=== PATIENT | female | born 1930 | race Caucasian/White ===

== ENCOUNTER 2016-05-04 08:02 | Outpatient (CLI) | payer OTHER ==
[2015-06-02 22:55] VITALS: BP 130/68
[2016-05-04 08:30] LABS: BASOPHILS % 0.5 (0.0-1.5); EOSINOPHILS % 2.6 % (0.0-6.8); LYMPHOCYTES # 1.4 # k/uL (0.6-4.0); MEAN CORPUSCULAR HEMOGLOBIN 31.2 pg (28.0-34.0); MONOCYTES # 0.7 # k/uL (0.0-0.9); MONOCYTES % 7.2 % (0.0-11.0); NEUTROPHILS # 7.4 # k/uL (1.4-7.7)
[2016-05-04 08:54] LABS: eGFR (African) > 60; eGFR (Non-African) > 60
== END 2016-05-04 08:03 ==
LOC: LAB 08:02
PROVIDERS: ATTEND Family Medicine
DX: E78.1 Pure hyperglyceridemia (principal); I10 Essential (primary) hypertension
CPT/HCPCS: 36415; 80053; 80061; 85025

== ENCOUNTER 2016-05-10 08:14 | Outpatient (CLI) | payer OTHER ==
[2015-06-02 22:55] VITALS: BP 130/68
[2016-05-10 09:22] LABS: APPEARANCE,URINE Slightly Cloudy (CLEAR); COLOR,URINE Yellow (YELLOW); OCCULT BLOOD,URINE Negative (NEGATIVE); UROBILINOGEN URINE 0.2 Eu (0.2-1.0)
[2016-05-10 10:16] LABS: AMORPHOUS SEDIMENT,UR FEW (NEGATIVE)
--- NOTE | 2016-05-10 14:09 | Diagnostic Imaging Report ---
[facility] [address] [facility] [address] [address] Report Submission Date: May 10, 2016 9:01:54 AM STRAWHAT SIZER Patient Study Name: VIKAS JAIN Date: May 10, 2016 8:32:59 AM STRAWHAT SIZER Modality Type: CT\SR Gender: F Description: CT BRAIN W/O CONTRAST : 32 Institution: [facility] Physician: ANGIE AGUILERA Head CT without contrast Clinical history: Multiple falls in the last few months. Severe headaches. Technique: CT examination of the brain is performed in contiguous axial slices without the use of contrast. Sagittal and coronal reconstructions are performed by the technologist. Findings: The fourth ventricle lies in a normal midline position. The ventricles and sulci are prominent secondary to atrophy. There is no hypodense or hyperdense mass or intracranial hemorrhage. Visualized paranasal sinuses and the mastoid air cells are clear. Impression: 1. Atrophy. 2. No acute intracranial changes. Electronically signed on May 10, 2016 9:01:54 AM STRAWHAT SIZER by: Jaguar HINTON
--- NOTE | 2016-05-10 14:10 | Diagnostic Imaging Report ---
[facility] [address] [facility] [address] Report Submission Date: May 10, 2016 12:12:51 PM FINANCIAL SALES ADVISOR Patient Study Name: VIKAS JAIN Date: May 10, 2016 8:43:12 AM FINANCIAL SALES ADVISOR Modality Type: US Gender: F Description: DPLX SCN XTRCRAN ART CMP MARIELY : 32 Institution: [facility] Physician: ANGIE AGUILERA Duplex imaging of the carotids Clinical history: Left carotid bruit. Technique: Real time sonography of the carotid and vertebral arteries is performed in transverse and longitudinal views. Doppler interrogation and color flow imaging are additionally used. Findings: Intimal thickening is evident in the common carotid and proximal internal carotid arteries bilaterally. There are scattered areas of plaque formation. No significant stenosis is evident on the ryan scale images. Doppler waveforms are within normal limits without significant spectral broadening. The internal carotid peak velocities measure 63 cm/sec on the right 76 cm/sec on the left with an internal carotid to common carotid artery ratio 0.7 on the right 0.5 on the left. Vertebral arteries demonstrate normal cephalad flow. Impression: 1. Bilateral plaque formation and intimal thickening. 2. Bilateral less than 50% internal carotid stenosis. The degree of carotid stenosis is estimated using the Society of Radiologists in Ultrasound consensus conference of 2003 criteria. Electronically signed on May 10, 2016 12:12:51 PM FINANCIAL SALES ADVISOR by: Jaguar HINTON
== END 2016-05-10 08:15 ==
LOC: RAD 08:14
PROVIDERS: ATTEND Family Medicine
DX: R35.0 Frequency of micturition (principal); G45.9 Transient cerebral ischemic attack, unspecified; R09.89 Other specified symptoms and signs involving the circulatory and respiratory systems; N39.0 Urinary tract infection, site not specified
CPT/HCPCS: 70450; 81002; 87088; 93880

== ENCOUNTER 2016-06-12 19:20 | Emergency (ER) | payer OTHER ==
--- NOTE | 2016-06-12 19:31 | ED Physician Documentation ---
General Adult - HISTORIAN Historian: patient, paramedics - [facility] Stated Complaint: fall Chief Complaint: General Adult Onset: minutes Timing: still present Severity: moderate Further Comments: yes (Pt is an 85 yo female who fell at home and sustained multiple skin tears to her R arm and L knee and a small facial laceration, which occurred due to her eyeglasses. Pt denies significant injury to her head , except where the eyeglasses struck. She has no neck pain. Pt has osteoarthritis and has fallen several times upon getting up from her chair, when her knees give way. No lightheadedness, she says.) - ROS CONST: no problems EYES/ENT: none CVS/RESP: none GI/: none MS/SKIN/LYMPH: other (skin tears R arm, L knee, small facial lac) - PAST HX Past History: hypertension, other (Thyroid d/o) Allergies/Adverse Reactions: Allergies Allergy/AdvReac Type Severity Reaction Status Date / Time aspirin Allergy Severe bleeding Verified 06/02/15 21:11 ulcer adhesive Allergy Intermediate Rash Verified 06/02/15 21:11 Penicillins Allergy Intermediate Hives Verified 06/02/15 21:11 Sulfa (Sulfonamide Allergy Intermediate Rash Verified 06/02/15 21:11 Antibiotics) Home Medications: Ambulatory Orders Medication Instructions Recorded Allopurinol [Zyloprim] 300 mg PO D 04/19/13 Ca/D3/Mag Ox/Zinc/Trust Manager/Hugo/Bor 1 each PO D 04/19/13 [Calcium 600+D3 Plus Caplet] Cyanocobalamin [Vitamin B-12] 1,000 mcg IM DIRECTED 04/19/13 Levothyroxine Sodium 25 mcg PO D 04/19/13 Lisinopril/Hydrochlorothiazide 1 each PO D 04/19/13 [Lisinopril-Hctz 20-12.5 mg Tab] Lovastatin 40 mg PO HS 04/19/13 Multivitamin [Tab-A-Sonya] 1 each PO QD 04/19/13 Albuterol Sulfate [Proair Hfa] 2 inh IH QID #1 hfa.aer.ad 07/04/13 Benzonatate [Tessalon Perles] 200 mg PO TID #20 capsule 07/04/13 Cephalexin [Keflex] 500 mg PO QID #30 capsule 07/04/13 - SOCIAL HX Smoking History: non-smoker Alcohol Use: none Drug Use: none - FAMILY HX Family History: No - VITAL SIGNS Vital Signs: Vital Signs Temp Pulse Resp BP Pulse Ox 130/68 06/02/15 22:53 - REVIEWED ASSESSMENTS Nursing Assessment Reviewed: Yes Vitals Reviewed: Yes Progress - Progress Progress: superficial 2 cm laceration R cheek, cleansed with memo-clens and closed with steristrips and tissue adhesive. multiple skin tears closed with steri stips and dressing applied. Tetanus utd. General Adult Physical Exam - PHYSICAL EXAM GENERAL APPEARANCE: mild distress EENT: eye inspection normal, pharynx normal NECK: normal inspection, supple RESPIRATORY: no resp distress, chest non-tender CVS: reg rate & rhythm, heart sounds normal BACK: normal inspection SKIN: other (skin tear, L knee; skin tears R arm, elbow, forearm, hand; small superficial laceration R cheek; abrasion over bridge of nose.) EXTREMITIES: non-tender, normal range of motion NEURO: oriented X3, motor nml, sensation nml Discharge Clincal Impression: Multiple skin tears Fall Qualifiers: Encounter type: initial encounter Qualified Code(s): W19.XXXA - Unspecified fall, initial encounter Laceration of right cheek Qualifiers: Encounter type: initial encounter Qualified Code(s): S01.411A - Laceration without foreign body of right cheek and temporomandibular area, initial encounter Referrals: Bill Santana MD [Primary Care Provider] - Home Medications: Ambulatory Orders Allopurinol [Zyloprim] 300 mg PO D 04/19/13 Ca/D3/Mag Ox/Zinc/Trust Manager/Hugo/Bor [Calcium 600+D3 Plus Caplet] 1 each PO D Cyanocobalamin [Vitamin B-12] 1,000 mcg IM DIRECTED 04/19/13 Levothyroxine Sodium 25 mcg PO D 04/19/13 Lisinopril/Hydrochlorothiazide [Lisinopril-Hctz 20-12.5 mg Tab] 1 each PO D Lovastatin 40 mg PO HS 04/19/13 Multivitamin [Tab-A-Sonya] 1 each PO QD 04/19/13 Albuterol Sulfate [Proair Hfa] 2 inh IH QID #1 hfa.aer.ad 07/04/13 Benzonatate [Tessalon Perles] 200 mg PO TID #20 capsule 07/04/13 Cephalexin [Keflex] 500 mg PO QID #30 capsule 07/04/13 Condition: Good Disposition: 01 HOME, SELF-CARE Decision to Admit: NO Decision Time: 20:34
[2016-06-12 21:00] VITALS: BP 133/60
== END 2016-06-12 20:30 | disposition home or self-care (01) ==
LOC: ED 19:20
DX: S01.411A Laceration without foreign body of right cheek and temporomandibular area, initial encounter (principal); W19.XXXA Unspecified fall, initial encounter; Y93.9 Activity, unspecified; Y99.9 Unspecified external cause status
CPT/HCPCS: 99283; 99284

== ENCOUNTER 2017-01-11 07:12 | Outpatient (CLI) | payer OTHER ==
[2017-01-11 07:46] LABS: BASOPHILS % 0.5 (0.0-1.5); EOSINOPHILS % 1.7 % (0.0-6.8); MEAN CORPUSCULAR HEMOGLOBIN 31.5 pg (28.0-34.0); MONOCYTES % 5.6 % (0.0-11.0)
[2017-01-11 07:56] LABS: eGFR (African) > 60; eGFR (Non-African) > 60
[2017-01-11 10:39] LABS: PLT EST. EST. AGREES W/PLT CT
== END 2017-01-11 07:13 ==
LOC: LAB 07:12
PROVIDERS: ATTEND Family Medicine
DX: E78.00 Pure hypercholesterolemia, unspecified (principal); I10 Essential (primary) hypertension; E03.9 Hypothyroidism, unspecified
CPT/HCPCS: 36415; 80053; 80061; 84443; 85025

== ENCOUNTER 2017-02-23 18:49 | Emergency (ER) | payer OTHER ==
[2017-02-23] MEDS ORDERED: DIPH,PERTUSS(ACELL),TET VAC/PF 0.5 ML DISP.SYRIN IM ONE (19:59)
--- NOTE | 2017-02-23 21:04 | ED Physician Documentation ---
Fall - HISTORIAN Historian: patient, friend - HPI Stated Complaint: Fall with skin tear to left arm Chief Complaint: Fall Additional Information: fall w/multiple very superficial skin tears lt hand fore arm and elbow-denies other injuries. denies head neck or other injuries-'JUST TRIPPED' AMBULATES NOW W/O DIFFICULTY Onset: just prior to arrival Where: home Context: tripped r: mild, moderate Associated Symptoms:: no loss of consciousness Location of Pain/Injury: denies: head, neck, face, chest, upper back, mid back, lower back Injury to Right Extremity: none Injury to Left Extremity: other (as above) - ROS CONST: no problems. denies: recent illness, fever, weakness NEURO: denies: dizziness, anxiety, depression MS/SKIN/LYMPH: denies: neck pain, back pain, ankle swelling, leg swelling EYES/ENT: none CVS/RESP: none. denies: shortness of breath, palpitations - PAST HX Past History: other (HTN LO THRYOID GOUT THROMBOCYTOSIS) Immunizations: UTD (FIRST SAID LONG TIME THEN NURSING STAFF FOUND SHE HAD TET IMMUN APPROX 1 YR AGO) Allergies/Adverse Reactions: Allergies Allergy/AdvReac Type Severity Reaction Status Date / Time aspirin Allergy Severe bleeding Verified 02/23/17 19:12 ulcer adhesive Allergy Intermediate Rash Verified 02/23/17 19:12 Penicillins Allergy Intermediate Hives Verified 02/23/17 19:12 Sulfa (Sulfonamide Allergy Intermediate Rash Verified 02/23/17 19:12 Antibiotics) Home Medications: Ambulatory Orders Medication Instructions Recorded Allopurinol [Zyloprim] 300 mg PO D 04/19/13 Ca/D3/Mag Ox/Zinc/Hand Funnel Coater/Hugo/Bor 1 each PO D 04/19/13 [Calcium 600+D3 Plus Caplet] Cyanocobalamin [Vitamin B-12] 1,000 mcg IM DIRECTED 04/19/13 Lovastatin 40 mg PO HS 04/19/13 Multivitamin [Tab-A-Sonya] 1 each PO QD 04/19/13 Albuterol Sulfate [Proair Hfa] 2 inh IH QID #1 hfa.aer.ad 07/04/13 Hydroxyurea [Hydroxyurea] 500 mg PO DAILY 02/23/17 - SOCIAL HX Smoking History: non-smoker Alcohol Use: none Drug Use: none - FAMILY HX Family History: no significant history - VITAL SIGNS Vital Signs: Vital Signs Temp Pulse Resp BP Pulse Ox 97.9 F 76 16 126/65 95 02/23/17 19:00 02/23/17 19:00 02/23/17 19:00 02/23/17 19:00 02/23/17 19:00 - REVIEWED ASSESSMENTS Nursing Assessment Reviewed: Yes Vitals Reviewed: Yes Procedures Wound Location: upper extremity Wound's Depth, Shape: superficial, irregular, flap, other (THREE LARGE SKIN TEARS-VERY SUPERFICIAL ELBOPW=TISSUE GONE) Wound Repaired With: Dermabond (ATTEMPT APPROX AT VARIOUS PLACET TO PARTIALLY COVER WOUND AFTER COPIOUS IRRIGATION - SUSAN W/ TELFA DRESSING) Sterile Dressing Applied?: Yes ED Results Lab/Radiology - Orders Orders: ED Orders Category Date Time Status Skin Adhesive NOW Care 02/23/17 20:15 Ordered Diph,Pertuss(Acell),Tet Vac/Pf [Adacel] Med 02/23/17 19:59 Discontinued 0.5 ml IM .ONCE ONE Fall Physical Exam - Physical Exam General Appearance: mild distress Head: non-tender, no swelling, no obvious injury Neck: non-tender, painless ROM Eye: MASON ENT: nml external inspection Resp/CVS: chest non-tender, no ecchymosis, breath sounds nml, no resp. distress , heart sounds nml Abdomen: soft, non-tender, other (PELVIC STRETCH NEG) Neuro: oriented x3, CN's nml as tested, sensation nml, motor nml, mood/affect nml Skin: color nml, no rash. No: cyanosis, diaphoresis, pallor, ecchymosis Extremities: atraumatic (XC W/ CC) Joint: nml ROM - [place] Coma Score Speech: Oriented Motor: Obeys Commands Discharge Clincal Impression: FALL W/MULTI SKINTEARS LT UPPER EXT Referrals: Bill Santana MD [Primary Care Provider] - 2 Days Condition: Good Disposition: 01 HOME, SELF-CARE Decision to Admit: NO Decision Time: 21:12
[2017-02-23 21:53] VITALS: BP 114/44
== END 2017-02-23 21:20 | disposition home or self-care (01) ==
LOC: ED 18:49
DX: S41.112A Laceration without foreign body of left upper arm, initial encounter (principal); W19.XXXA Unspecified fall, initial encounter; Y93.9 Activity, unspecified; Y99.9 Unspecified external cause status
CPT/HCPCS: 12001; 99283; 99284

== ENCOUNTER 2017-07-17 10:06 | Outpatient (CLI) | payer OTHER ==
[2017-07-17 10:56] LABS: eGFR (African) > 60; eGFR (Non-African) > 60
== END 2017-07-17 10:07 ==
LOC: LAB 10:06
PROVIDERS: ATTEND Family Medicine
DX: E87.1 Hypo-osmolality and hyponatremia (principal); I10 Essential (primary) hypertension
CPT/HCPCS: 36415; 80048

== ENCOUNTER 2017-08-04 08:21 | Outpatient (CLI) | payer OTHER ==
[2017-08-04 09:17] LABS: eGFR (African) > 60; eGFR (Non-African) > 60
== END 2017-08-04 08:30 ==
LOC: LAB 08:21
PROVIDERS: ATTEND Family Medicine
DX: E03.9 Hypothyroidism, unspecified (principal); E87.1 Hypo-osmolality and hyponatremia; I10 Essential (primary) hypertension
CPT/HCPCS: 36415; 80048; 84443

== ENCOUNTER 2017-08-15 14:05 | Outpatient (CLI) | payer OTHER ==
[2017-08-15 15:39] LABS: eGFR (African) > 60; eGFR (Non-African) > 60
== END 2017-08-15 14:06 ==
LOC: NEPHRO 14:05
PROVIDERS: ATTEND Internal Medicine Nephrology
DX: E87.1 Hypo-osmolality and hyponatremia (principal); E87.6 Hypokalemia
CPT/HCPCS: 36415; 80053; G0463

== ENCOUNTER 2017-08-29 14:46 | Outpatient (CLI) | payer OTHER | END 2017-08-29 14:48 | LOC: NEPHRO 14:46 | PROVIDERS: ATTEND Internal Medicine Nephrology | DX: I10 Essential (primary) hypertension (principal) | CPT/HCPCS: G0463 ==

== ENCOUNTER 2017-12-14 10:40 | Outpatient (CLI) | payer OTHER ==
[2017-12-14 12:05] LABS: eGFR (African) > 60; eGFR (Non-African) > 60
== END 2017-12-14 10:42 ==
LOC: LAB 10:40
PROVIDERS: ATTEND Family Medicine
DX: I10 Essential (primary) hypertension (principal)
CPT/HCPCS: 36415; 80048

== ENCOUNTER 2018-07-25 08:37 | Outpatient (CLI) | payer OTHER ==
[2018-07-25 09:08] LABS: MEAN CORPUSCULAR HEMOGLOBIN 41.6 pg (28.0-34.0)
[2018-07-25 09:09] LABS: BASOPHILS % 0.7 (0.0-1.5); EOSINOPHILS % 1.6 % (0.0-6.8); MONOCYTES % 6.1 % (0.0-11.0); NEUTROPHILS # 6.1 # k/uL (1.4-7.7)
[2018-07-25 09:32] LABS: eGFR (Non-African) > 60
[2018-07-25 13:35] LABS: APPEARANCE,URINE CLEAR (CLEAR); COLOR,URINE YELLOW (YELLOW); OCCULT BLOOD,URINE TRACE-LYSED (NEGATIVE); UROBILINOGEN URINE 0.2 Eu (0.2-1.0)
== END 2018-07-25 08:40 ==
LOC: LAB 08:37
PROVIDERS: ATTEND Internal Medicine Nephrology
DX: I10 Essential (primary) hypertension (principal)
CPT/HCPCS: 36415; 80053; 81002; 85025; 87086

== ENCOUNTER 2018-07-31 14:09 | Outpatient (CLI) | payer OTHER | END 2018-07-31 14:11 | LOC: NEPHRO 14:09 | PROVIDERS: ATTEND Internal Medicine Nephrology | DX: I10 Essential (primary) hypertension (principal); E87.1 Hypo-osmolality and hyponatremia; E83.52 Hypercalcemia | CPT/HCPCS: G0463 ==

== ENCOUNTER 2019-02-04 08:22 | Outpatient (CLI) | payer OTHER ==
[2019-02-14 09:41] LABS: APPEARANCE,URINE CLEAR (CLEAR); COLOR,URINE YELLOW (YELLOW); OCCULT BLOOD,URINE NEGATIVE (NEGATIVE); UROBILINOGEN URINE 0.2 Eu (0.2-1.0)
[2019-02-14 09:42] LABS: BASOPHILS % 0.6 % (0.0-1.5); NEUTROPHILS # 3.2 # k/uL (1.4-7.7); eGFR (Non-African) > 60
== END 2019-02-04 08:40 ==
LOC: LAB 08:22
PROVIDERS: ATTEND Internal Medicine Nephrology
DX: I10 Essential (primary) hypertension (principal)
CPT/HCPCS: 36415; 80053; 81002; 85025

== ENCOUNTER 2019-02-12 14:24 | Outpatient (CLI) | payer OTHER | END 2019-02-12 14:55 | LOC: NEPHRO 14:24 | PROVIDERS: ATTEND Internal Medicine Nephrology | DX: E87.0 Hyperosmolality and hypernatremia (principal); I10 Essential (primary) hypertension | CPT/HCPCS: 99213; G0463 ==